=== PATIENT | male | born 1975 | race Caucasian/White ===

== ENCOUNTER 2018-05-09 10:04 | Emergency (ER) | payer BC ==
[2018-05-09] VITALS (7 sets, daily range): BP systolic 138–150; BP diastolic 89–100
[~2018-05-09] VITALS: Ht 185.4 cm; Wt 77.1 kg
--- NOTE | 2018-05-09 10:15 | NUR ---
ED Nurse Note: pt [place] in [place], [id number] [address]. pt aao x1-2 and talking to himself frequently.
--- NOTE | 2018-05-09 10:16 | NUR ---
ED Nurse Note: pt denied chest pain or any other pain. skin clean and intact.
[2018-05-09 11:37] LABS: HEMATOCRIT 46.3 % (42.0-52.0); HEMOGLOBIN 15.4 G/DL (14.2-18.0); MEAN CORPUSCULAR VOLUME 93 FL (80-99); PLATELET COUNT 283 K/UL (150-450); RED BLOOD COUNT 4.98 M/UL (4.70-6.10); WHITE BLOOD COUNT 5.9 K/UL (4.8-10.8)
[2018-05-09 11:42] LABS: APPEARANCE,URINE CLEAR; BILIRUBIN, URINE NEGATIVE (NEGATIVE); COLOR,URINE PALE YELLOW; GLUCOSE, URINE (UA) NEGATIVE (NEGATIVE); KETONES,URINE NEGATIVE (NEGATIVE); LEUKOCYTE ESTERASE ,URINE 1+ (NEGATIVE); NITRITE,URINE NEGATIVE (NEGATIVE); PH,URINE 7 (4.5-8.0); PROTEIN,URINE NEGATIVE (NEGATIVE); UROBILINOGEN,URINE NORMAL MG/DL (0.0-1.0)
[2018-05-09 11:46] LABS: ANION GAP 3 mmol/L (5-15); BLOOD UREA NITROGEN 19 mg/dL (7-18); CALCIUM 9.6 MG/DL (8.5-10.1); CARBON DIOXIDE 31 MMOL/L (21-32); CHLORIDE 103 MMOL/L (98-107); CREATININE 1.1 MG/DL (0.55-1.30); POTASSIUM 5.7 MMOL/L (3.5-5.1); SODIUM 137 MMOL/L (136-145)
[2018-05-09 11:50] LABS: ALANINE AMINOTRANSFERASE 25 U/L (12-78); ALBUMIN 3.9 G/DL (3.4-5.0); ALKALINE PHOSPHATASE 76 U/L (46-116); ASPARTATE AMINO TRANSFERASE 23 U/L (15-37); BILIRUBIN,TOTAL 0.4 MG/DL (0.2-1.0)
--- NOTE | 2018-05-09 12:10 | Emergency Room Report ---
History of Present Illness General Chief Complaint: Behavioral Complaint Source: Patient Present Illness HPI 42-year-old male who was found walking naked in the streets by police. He now does not recall why he was walking naked. He states that he recently moved to [place] from [place], [place]. He states that he has been living in hotels. His history is somewhat inconsistent. He denies any psychiatric history. He denies any auditory or visual hallucinations. He denies any homicidal or suicidal ideation. Allergies: Coded Allergies: CEPHALOSPORINS (Verified Allergy, Unknown, 05/09/18) Patient History Social History: Reports: smoking, drug use - marijuana Nursing Documentation-[facility] Past Medical History: No History, Except For History Of Psychiatric Problem: Yes Review of Systems All Other Systems: negative except mentioned in HPI Physical Exam Vital Signs Date Time Temp Pulse Resp B/P (MAP) Pulse Ox O2 Delivery O2 Flow Rate FiO2 05/09/18 10:03 98.1 93 18 150/96 100 Room Air General Appearance: well appearing, no apparent distress Head: normocephalic, atraumatic ENT: hearing grossly normal, normal voice Neck: full range of motion, supple Gastrointestinal: normal inspection, non tender, soft Neurologic: normal inspection, alert, oriented x3, responsive, frame runner III-XII nml as tested, motor strength/tone normal, sensory intact Psychiatric: judgement/insight normal - Poor insight, no suicidal/homicidal ideation Medical Decision Making Diagnostic Impression: Primary Impression: Behavioral change ER Course Patient has had multiple bedside evaluation. Patient alert and nontoxic appearing. No other associated symptoms. The patient has been alert. However , he has been somewhat agitated. However, he has not required any antipsychotic medications. We were able to get hold of the brother to verify the patient. He has no psychiatric illness. Acute delirium was considered. Acute underlying organic causes also considered as well. The patient has no neurological deficit. At this time, we are awaiting a psychiatric consultation. And this will help determine the patient disposition. business services assistant will also need to be contacted. Last Vital Signs Date Time Temp Pulse Resp B/P (MAP) Pulse Ox O2 Delivery O2 Flow Rate FiO2 05/09/18 10:10 93 18 Room Air 05/09/18 10:10 98.1 150/96 100 Condition: Stable Signed Out To: Dr. Kt Reyes Referrals: NOT CHOSEN IPA/,REFERRING (PCP) SHRAVAN BALLESTEROS May 09, 2018 12:10
--- NOTE | 2018-05-09 13:00 | NUR ---
ED Nurse Note: pt walked out of room naked and tried to go into another room which another pt was in. pt was redirencted back to his room and sitter was assigned.
--- NOTE | 2018-05-09 14:23 | NUR ---
ED Nurse Note: waiting for PET evaluation.
--- NOTE | 2018-05-09 17:25 | NUR ---
ED Nurse Note: was told that PET team will arrive in one hour.
--- NOTE | 2018-05-09 19:11 | NUR ---
ED Nurse Note: Received report from Montse CHOUDHURY. Pt awake, restless, very talkative. No distress noted. Currently awaiting PET team eval. MULLINS aware. Will continue to monitor closely. Addendum: 05/09/18 at 1916 by TEVELYN CORRECTION: RN's name is Peter
--- NOTE | 2018-05-09 19:16 | NUR ---
HAND-OFF: Report given to MACEY Brooks. waiting for PET team to come in.
--- NOTE | 2018-05-09 20:28 | NUR ---
Yuliana Heller is here from [facility]-Access team to evaluate patient.
[2018-05-09] MEDS ORDERED: Haloperidol 5mg/ml Inj IM ONE (21:45)
--- NOTE | 2018-05-10 00:06 | NUR ---
ED Nurse Note: Report given to Colleen RN for continuity of care per CN. Pt stable but still restless.
--- NOTE | 2018-05-10 02:08 | NUR ---
Spoke with David at [facility], updated and faxed the doctors progress notes and summary report as requested to [phone].
[2018-05-10 02:45] VITALS: BP 140/89
--- NOTE | 2018-05-10 02:45 | NUR ---
ED Nurse Note: pt calmy sleeping on bed, respiration equal, not in distress. will continue to monitor.
--- NOTE | 2018-05-10 04:08 | NUR ---
David called from [facility]: Patient accepted to [facility] - [address] [place] [address] room [address]-B Accepting is Call [facility] -[phone] ask for [address] [place] [address]. ETA-[facility] 04:30
--- NOTE | 2018-05-10 04:31 | NUR ---
ED Nurse Note: Report given to David CHOUDHURY at [facility] for transfer over telephone. Gave her ETA of 0430 pickup by [facility]. Awaiting pickup. Pt resting and stable.
--- NOTE | 2018-05-10 04:32 | NUR ---
Patients mother urodozace-[phone] , notified of [facility] going to [facility], address and phone number of [employer] also given as promised last night. Rufina Salvador also attempted to be contacted at [phone] with no success-phone rings rings and message box was full-unable to leave message.
[2018-05-10 04:37] VITALS: BP 140/89
== END 2018-05-10 04:51 ==
LOC: EDBD 10:04 → EMR 11:09
DX: F91.9 Conduct disorder, unspecified (principal); R45.1 Restlessness and agitation; Z88.1 Allergy status to other antibiotic agents
CPT/HCPCS: 36415; 80053; 80307; 81001; 85007; 85025; 96372; 99285; G0480; J1630; 80329